=== PATIENT | female | born 1940 | race Asian ===

== ENCOUNTER → 2016-09-22 | Outpatient (CLI) | payer OTHER ==
[~2016-09-22] MED LIST: AMLO1TAB36 PO; ATEN50TA PO; DESI10TA3 PO; FAMO40TA76 PO; METF500T4 PO; OMEP20TA86 PO; ROSU10 PO
== END | disposition home or self-care (01) ==
LOC: RADPV 11:51
PROVIDERS: ATTEND Internal Medicine
DX: M17.0 Bilateral primary osteoarthritis of knee (principal)